=== PATIENT | male | born 1995 | race Caucasian/White ===

== ENCOUNTER → 2023-09-03 15:27 | Outpatient (BNVA) | payer MEDICAID, SELFPAY | PROVIDERS: PCP Family Medicine; Visit Provider Family Medicine | DX: M25.559 Pain in unspecified hip (principal); F41.1 Generalized anxiety disorder; F41.0 Panic disorder [episodic paroxysmal anxiety]; R53.1 Weakness; Z98.890 Other specified postprocedural states; M25.571 Pain in right ankle and joints of right foot; R26.81 Unsteadiness on feet; R26.89 Other abnormalities of gait and mobility; K21.9 Gastro-esophageal reflux disease without esophagitis; I10 Essential (primary) hypertension; R35.1 Nocturia | CPT/HCPCS: 80053; 80061; 81000; 83036; 84443; 85025 ==